=== PATIENT | female | born 1970 | race African-American/Black ===

== ENCOUNTER 2022-08-16 14:49 | Emergency (ER) | payer BC, OTHER ==
[~2022-08-16] VITALS: Ht 157.5 cm; Wt 64.5 kg
[2022-08-16] MEDS ORDERED: HYDROCHLOROTHIA25 MG PO (15:42)
[2022-08-16] MEDS ORDERED: LISINOPRIL10 MG PO (15:42)
[2022-08-16] MEDS ORDERED: ATORVASTATIN CA20 MG PO (15:42)
[2022-08-16] MEDS ORDERED: NITROSTAT0.4 MG SL (15:42)
[2022-08-16] MEDS ORDERED: ASPIRIN EC81 MG PO (15:42)
[2022-08-16] MEDS ORDERED: TRAZODONE HCL100 MG PO (15:42)
[2022-08-16] MEDS ORDERED: CLOPIDOGREL75 MG PO (15:42)
[2022-08-16] MEDS ORDERED: MELATONIN10 M2 (15:42)
[2022-08-16] MEDS ORDERED: COREG12.5 MG PO (15:42)
[2022-08-16] MEDS ORDERED: POTASSIUM CHLORIDE 20 MEQ TAB CR PO STA (16:16)
[2022-08-16 16:21] VITALS: BP 156/85; PULSE 73
[2022-08-16] MEDS ORDERED: SODIUM CHLORIDE 0.9% 1000ML 1,000 ML IV SCH (16:30)
[2022-08-16] MEDS ORDERED: CEFTRIAXONE 1 GM VIAL ONE (17:36)
[2022-08-16 17:51] VITALS: O2SAT 100
[2022-08-16] MEDS ORDERED: CEFUROXIME500 MG PO (18:49)
[2022-08-16] MEDS ORDERED: POTASSIUM CHLO10 ME1 PO (18:54)
== END 2022-08-16 19:23 | disposition home or self-care (01) ==
LOC: FSED 14:56
DX: R55 Syncope and collapse (principal); N12 Tubulo-interstitial nephritis, not specified as acute or chronic; N20.0 Calculus of kidney; E87.6 Hypokalemia; R10.32 Left lower quadrant pain; I10 Essential (primary) hypertension; E78.5 Hyperlipidemia, unspecified; I25.10 Atherosclerotic heart disease of native coronary artery without angina pectoris; F32.A Depression, unspecified; I25.2 Old myocardial infarction; F17.210 Nicotine dependence, cigarettes, uncomplicated
CPT/HCPCS: 70450; 74176; 80048; 80076; 81003; 81025; 82553; 83880; 84484; 85025; 85379; 87086; 87186; 93005; 99284; J0696; J7030